=== PATIENT | female | born 1955 | race Caucasian/White ===

== ENCOUNTER 2020-12-09 14:15 | Outpatient (CLI) | payer BC, SELFPAY | END 2020-12-09 14:16 | disposition home or self-care (01) | LOC: ANHCOVIDVC 14:15 | PROVIDERS: PCP Family Medicine Adolescent Medicine | DX: Z23 Encounter for immunization (principal) | CPT/HCPCS: 0001A; 91300 ==

== ENCOUNTER 2020-12-30 14:14 | Outpatient (CLI) | payer BC, SELFPAY | END 2020-12-30 14:15 | disposition home or self-care (01) | LOC: ANHCOVIDVC 14:14 | PROVIDERS: PCP Family Medicine Adolescent Medicine | DX: Z23 Encounter for immunization (principal) | CPT/HCPCS: 0002A; 91300 ==

== ENCOUNTER → 2021-04-14 06:57 | Outpatient (CLI) | payer BC, SELFPAY ==
[2021-04-14 19:11] LABS: SARS-CoV-2 RNA PCR Negative
== END ==
PROVIDERS: PCP Family Medicine Adolescent Medicine; Visit Provider Family Medicine Adolescent Medicine
DX: R05 Cough (principal); R09.81 Nasal congestion; J02.9 Acute pharyngitis, unspecified; Z20.822 Contact with and (suspected) exposure to COVID-19
CPT/HCPCS: C9803; U0003; U0005

== ENCOUNTER → 2021-09-18 10:21 | Outpatient (CLI) | payer MEDICARE, SELFPAY ==
--- NOTE | ~2021-09-18 | DEXA_ITS ---
Bone Density Report Name: SIERRA COX Age: 66 Sex: Female Ethnicity: White Date of : 1955 Indication: postmenopausal; screening for osteoporosis; height loss; cancer; hysterectomy; Referring Provider: Nataly Cannon Study: Bone densitometry was performed. Exam Date: September 18, 2021 Accession number: [id number] Bone Density: Region BMD T-score Z-score Classification AP Spine (L1-L4) 0.972 -0.7 1.1 Normal Femoral Neck (Left) 0.604 -2.2 -0.7 Osteopenia Total Hip (Left) 0.864 -0.6 0.6 Normal Femoral Neck (Right) 0.601 -2.2 -0.7 Osteopenia Total Hip (Right) 0.843 -0.8 0.4 Normal Total Hip Mean 0.854 -0.7 0.5 Normal World Health Organization criteria for BMD impression classify patients as: Normal (T-score at or above -1.0), Osteopenia (T-score between -1.0 and -2.5), or Osteoporosis (T-score at or below -2.5). 10-year Fracture Risk(1): Major Osteoporotic Fracture 11% Hip Fracture 2.7% Reported Risk Factors: [place] (), Neck BMD=0.601, BMI=37.1, smoking (1) FRAX(R) Version 3.08. Fracture probability calculated for an untreated patient. Fracture probability may be lower if the patient has received treatment. Previous Exams: Region Exam Age BMD T-score BMD Change BMD Change Date g/cm2 vs Baseline vs Previous AP Spine(L1-L4) 09/18/2021 66 0.972 -0.7 -0.011 0.025* 09/15/2019 64 0.948 -0.9 -0.035* -0.035* 08/14/2017 62 0.983 -0.6 Total Hip(Left) 09/18/2021 66 0.864 -0.6 -0.015 0.001 09/15/2019 64 0.863 -0.6 -0.016 -0.016 08/14/2017 62 0.879 -0.5 Total Hip(Right) 09/18/2021 66 0.843 -0.8 -0.028* 0.004 09/15/2019 64 0.839 -0.8 -0.032* -0.032* 08/14/2017 62 0.871 -0.6 *Denotes significance at 95% confidence level, LSC for AP Spine = 0.022 g/cm2, LSC for Total Hip = 0.027 g/cm2 Clinical Information Provided by Patient: Smokes Has used the following medications: Vitamin D, Calcium Has the following medical conditions: Cancer, Hysterectomy Patient maximum height was 62.0 Menopause Age: 41 No regular weight bearing exercise Drinks caffeinated beverages Onset of menses at age 13 Number of children 2 Impression: The patient has low bone mass, based on the Left Femoral Neck T-score. The patient has an estimated ten-year risk of hip fracture of 2.7% and an estimated ten-year risk of
== END ==
PROVIDERS: PCP Family Medicine Adolescent Medicine; Visit Provider Student in an Organized Health Care Education/Training Program
DX: Z78.0 Asymptomatic menopausal state (principal); M85.851 Other specified disorders of bone density and structure, right thigh; M85.852 Other specified disorders of bone density and structure, left thigh
CPT/HCPCS: 77080

== ENCOUNTER → 2022-03-28 11:42 | Outpatient (CLI) | payer MEDICARE, SELFPAY ==
--- NOTE | ~2022-03-28 | CT_ITS ---
EXAMINATION: CT abdomen pelvis wo/w con DATE: 03/28/2022 12:25 INDICATION: Hematuria, history of bladder and breast cancer and melanoma TECHNIQUE: Computed tomography (CT) of the abdomen and pelvis was performed without intravenous contr ast. CT of the abdomen and pelvis was then performed with a total of 130 mL Omnipaque 300 intravenous contrast using a double-bolus technique for simultaneous opacification of the renal parenchyma and r enal collecting system. The dose-length product (DLP) was 1812.87 mGy-cm. Automated exposure control and iterative reconstruction technique were employed. COMPARISON: 10/31/2012 FINDINGS: Minimal dependent atelectasis is present in the lung bases. The heart size is normal. There is a small sliding hiatal hernia. The gallbladder is surgically absent. There is mild enlargement of the common bile duct and central intrahepatic ducts which is likely due to post cholecystectomy stat e. There is a 2 cm adenoma of the right adrenal gland. The liver, spleen, pancreas, and left adrenal gland are normal. There is a 4 mm nonobstructing stone of the left kidney. There are multiple small c ysts of the kidneys which measure up to 12 mm on the right. No stones are identified in the kidneys, ureters, or bladder. There is no hydronephrosis or hydroureter. There are is a 6 mm soft tissue atten uation filling defect in the right posterolateral bladder. No pathologically enlarged abdominal or pe lvic lymph nodes are identified. There is no free intraperitoneal gas or evidence of bowel obstructio n. There is mild lumbar spondylosis. IMPRESSION: 1. No acute abnormality of the abdomen or pelvis. 2. Soft tissue filling defect in the right posterolateral bladder wall concerning for urothelial carc inoma. Direct visualization is recommended. Reviewed, dictated and finalized at location A. IMPRESSION: 1. No acute abnormality of the abdomen or pelvis. 2. Soft tissue filling defect in the right posterolateral bladder wall concerni ng for urothelial carcinoma. Direct visualization is recommended.
[2022-03-28 12:03] LABS: Estimated Glomerular Filt Rate > 60
== END ==
PROVIDERS: PCP Family Medicine Adolescent Medicine; Visit Provider Physician Assistant
DX: R31.9 Hematuria, unspecified (principal); D35.01 Benign neoplasm of right adrenal gland; Z85.038 Personal history of other malignant neoplasm of large intestine; K44.9 Diaphragmatic hernia without obstruction or gangrene; M47.816 Spondylosis without myelopathy or radiculopathy, lumbar region; M79.89 Other specified soft tissue disorders
CPT/HCPCS: 74178; Q9967

== ENCOUNTER 2022-04-26 10:35 | Outpatient (CLI) | payer MEDICARE, SELFPAY ==
--- NOTE | 2022-04-26 10:53 | ECG_ITS ---
Measurements Intervals [place] Rate: 62 P: 64 W[place]: 277 QRS: 50 QRSD: 98 T: -63 QT: 399 QTc: 407 Interpretive Statements ATRIAL SENSE- ELECTRONIC VENTRICULAR PACEMAKER BASELINE ARTIFACT- I, II, III, AVR, AVL, AVF NO FURTHER INTERPRETATION IS POSSIBLE ATYPICAL ECG Electronically Signed On 04-26-2022 11:24:04 CDT by Eddie Munson D.O.
[2022-04-26 11:20] LABS: Hematocrit 51.2 % (37.0-47.0); Hemoglobin 16.3 g/dL (12.0-15.0); Mean Corpuscular HGB Conc 31.8 g/dl (32-36); Mean Corpuscular Hemoglobin 29.1 pg (26-34); Mean Corpuscular Volume 91.3 fl (80-100); Mean Platelet Volume 12.3 fl (7.4-10.4); Platelet Count Result 122 k/mm3 (150-375); Red Blood Count 5.61 M/mm3 (4.2-5.4); Red Cell Distribution Width 13.9 % (11.5-14.5)
[2022-04-26 12:21] LABS: Anion Gap 10 mmol/L (8-16); Blood Urea Nitrogen 26 mg/dL (7-17); Calcium 9.3 mg/dL (8.4-10.2); Carbon Dioxide 29 mmol/L (22-30); Chloride 103 mmol/L (98-107); Estimated Glomerular Filt Rate > 60; Glucose 80 mg/dL (65-110); Potassium 4.4 mmol/L (3.4-5.0); Sodium 142 mmol/L (137-145)
== END 2022-04-26 10:36 | disposition home or self-care (01) ==
LOC: ANHSURGERY 10:40
PROVIDERS: PCP Family Medicine Adolescent Medicine; Visit Provider Urology
DX: Z01.818 Encounter for other preprocedural examination (principal); I49.5 Sick sinus syndrome; C67.9 Malignant neoplasm of bladder, unspecified; R94.31 Abnormal electrocardiogram [ECG] [EKG]
CPT/HCPCS: 36415; 80048; 85027; 85610; 85730; 87077; 87086; 87186; 93005

== ENCOUNTER 2022-05-10 09:26 | Outpatient (CLI) | payer MEDICARE, SELFPAY | END 2022-05-10 09:27 | disposition home or self-care (01) | LOC: ANHSURGERY 09:29 | PROVIDERS: PCP Family Medicine Adolescent Medicine; Visit Provider Urology | DX: Z01.818 Encounter for other preprocedural examination (principal); C67.9 Malignant neoplasm of bladder, unspecified | CPT/HCPCS: 87086; 87088 ==

== ENCOUNTER 2022-05-15 00:27 | Day surgery (SDC) | payer MEDICARE, SELFPAY ==
[2022-04-24 08:46] VITALS: BMI 34.4
--- NOTE | 2022-04-24 09:43 | PC.NURSE ---
Report to the Outpatient Waiting Room, entrance under the green pavilion located off [facility], at time 0630__ on date _05/01/22. OR Time: _0830 . WE WILL CALL YOU ON Saturday04/30/22 IF YOUR SURGERY TIME IS CHANGED - You and your visitor will be asked a series of questions to screen for COVID 19 for your protection. - Only one visitor is allowed at this time. - The patient visitor is requested to leave or wait in car when not with patient. - A mask is required within the hospital. Patients may have clear liquids (water, carbonated beverages, clear teas, apple juice) until 3 hours prior to surgery with a maximum of 20 ounces. - No food from midnight until time of surgery Take the following medications with a SIP of water the morning of surgery: __WELLBUTRIN Medications to discontinue per physician ___VITAMINS/SUPPLEMENTS Date to take last dose__04/28/22 Please no make-up, nail sing[place], hairspray, perfume, deodorant, or body powder the day of surgery. No jewelry (including any body piercings) or valuables the day of surgery, leave them at home. Please take a shower or bath the night before, or the morning of, surgery with an antibacterial soap. Wear comfortable, loose fitting clothing. - Jewelry must be removed prior to entering the operating room. Rings and piercings that are not removed may be cut off. - The hospital will not accept responsibility for valuables. - Please leave all valuables, including medications, at home the day of surgery. If you are going home after surgery, a licensed petroleum transport driver must drive you home. - NO public transportation without another adult. - We recommend that an adult stay with you for 24 hours following discharge. - We also recommend that you do not drive, make important decision, drink alcoholic beverages, or take any drugs that were not prescribed by your health care provider for at least 24 hours after your discharge time. Follow any additional instructions given to you from your surgeon. If you or anyone in your household have experienced Covid symptoms in the past week, please notify your surgeon or the nurse liaison at the phone number below for possible testing. Telephone instructions given to __LISA and asked if any additional questions and then verbalized understanding. Patient advised to call surgeon office or pre surgery nurse liaison [phone] if any additional questions.
--- NOTE | 2022-04-30 13:31 | WPDANESEPPF ---
Anes - Initial Pre Proc Eval Procedure: Operation Date: 05/01/22 08:30 Proposed Procedures p Trans Urethral Resection Bladder Tumor - Radames Salcido MD Date/Time: 04/30/22 13:31 Surgeon: Radames Salcido MD Pre Op Diagnosis: bladder cancer Patient Data Age: 66 Gender: F Height: 1.52 m Weight: 80 kg Allergies Allergy/AdvReac Type Severity Reaction Status Date / Time adhesive tape Allergy Intermediate Rash Verified 04/24/22 08:58 amoxicillin Allergy Intermediate Rash Verified 04/24/22 08:58 isoniazid Allergy Intermediate Rash Verified 04/24/22 08:58 Sulfa (Sulfonamide Allergy Intermediate Rash Verified 04/24/22 08:58 Antibiotics) sulfanilamide Allergy Intermediate Rash Verified 04/24/22 08:58 trimethoprim Allergy Intermediate Rash Verified 04/24/22 08:58 varenicline Allergy Intermediate Rash Verified 04/24/22 08:58 Home Medications Medication Instructions Recorded Confirmed Type cholecalciferol (vitamin D3) 25 1,000 unit PO DAILY 09/01/19 04/24/22 History mcg (1,000 unit) capsule omega-3 fatty acids 1,000 mg 1,000 mg PO DAILY 09/01/19 04/24/22 History capsule (Fish Oil Concentrate) calcium carbonate 600 mg calcium 600 mg PO BID 09/25/19 04/24/22 History (1,500 mg) tablet (Calcium) estradiol 10 mcg vaginal tablet 10 mcg vaginal 2XW #24 tabs 12/15/20 04/24/22 Rx (Yuvafem) bupropion HCl 150 mg tablet,12 hr 150 mg PO BID #180 tabs 12/04/21 04/24/22 Rx sustained-release pantoprazole 40 mg tablet,delayed 40 mg PO QAM #90 tabs 12/04/21 04/24/22 Rx release rosuvastatin 20 mg tablet 20 mg PO DAILY #90 tabs 12/16/21 04/24/22 Rx venlafaxine 37.5 mg 37.5 mg PO HS 04/24/22 04/24/22 History capsule,extended release 24 hr Results Review: All pre-operative results and documents have been reviewed as part of the pre-operative evaluation. [facility] Past Medical History Medical History (Updated 04/30/22 @ 13:31 by Eduin Howard DO) Aortic atherosclerosis Basal cell carcinoma Bladder cancer Breast cancer Lipoma Malignant melanoma Pacemaker Pacemaker Pure hypercholesterolemia, unspecified Sick sinus syndrome Surgical History Surgical History H/O dilation and curettage H/O hernia repair H/O total hysterectomy with removal of both tubes and ovaries History of mastectomy History of tonsillectomy History of tubal ligation Hx of cholecystectomy Family History Family History Mother Hypertension Family history of elevated blood lipids, Onset Age: 82 Family history of lung cancer Grandparent Cerebrovascular accident, Onset Age: 89 Family history of malignant neoplasm of breast in first degree relative, Onset Age: 89 Father Family history of lung cancer Other Family history of allergic disorder Family history of tuberculosis Social History Social History Smoking packs per day: 1 Smoking cigarettes per day: 20.0 Years smoked: 50 Smoking pack-years: 50.00 Smoking status: Current every day smoker Tobacco type: cigarettes Second hand tobacco smoke exposure: No Alcohol intake: never Alcohol use details: socially Substance use: never Substance use type: does not use Gender identity (if verbalized by the patient): Female Sexual Orientation (if Verbalized by the Patient): Straight or Heterosexual Spiritual care concerns: No Agree to blood products: Yes Anes - Eval Final PreProcedure Day of Procedure 04/30/22 13:31 Patient weight: obese Heart: regular rate and rhythm Lungs: clear to auscultation Airway: Mallampati scale class II Neurological: alert and oriented Last oral intake: >/= 8 hours ASA classification: III Emergent: no Anesthetic plan: proceed Anesthesia type and monitoring: general LMA and standard monitoring Results Review:
--- NOTE | 2022-05-09 08:38 | PC.NURSE ---
Report to the Outpatient Waiting Room, entrance under the green pavilion located off [facility], at time ___0600____ on date ___05/15/22____. OR Time: __729 . - You and your visitor will be asked a series of questions to screen for COVID 19 for your protection. - Only one visitor is allowed at this time. - The patient visitor is requested to leave or wait in car when not with patient. - A mask is required within the hospital. Patients may have clear liquids (water, carbonated beverages, clear teas, apple juice) until 3 hours prior to surgery with a maximum of 20 ounces. - No food from midnight until time of surgery - Infants may have breast milk until 4 hours before surgery, infant formula 6 hours prior to surgery. - Children will be allowed to drink immediately following surgery. If applicable, please bring a bottle or sippy cup to assist with drinking. Juice, water, soda, and popsicles are readily available. For infants on formula, please bring formula the day of surgery. Pacifiers are allowed. Take the following medications with a SIP of water the morning of surgery: ____BUPROPION Medications to discontinue per physician _ALL VITAMINS AND SUPPLEMENTS 3 DAYS PRE OP Date to take last dose__05/11/22 Please no make-up, nail citizen of [place], hairspray, perfume, deodorant, or body powder the day of surgery. No jewelry (including any body piercings) or valuables the day of surgery, leave them at home. Please take a shower or bath the night before, or the morning of, surgery with an antibacterial soap. Wear comfortable, loose fitting clothing. Children are encouraged to wear pajamas. - Jewelry must be removed prior to entering the operating room. Rings and piercings that are not removed may be cut off. - The hospital will not accept responsibility for valuables. - Please leave all valuables, including medications, at home the day of surgery. If you are going home after surgery, a licensed hazardous materials driver must drive you home. - NO public transportation without another adult. - We recommend that an adult stay with you for 24 hours following discharge. - We also recommend that you do not drive, make important decision, drink alcoholic beverages, or take any drugs that were not prescribed by your health care provider for at least 24 hours after your discharge time. For Pediatric surgeries, we recommend two adults accompany the child home (only one inside the building at this time). Follow any additional instructions given to you from your surgeon. If you or anyone in your household have experienced Covid symptoms in the past week, please notify your surgeon or the nurse liaison at the phone number below for possible testing. Telephone instructions given to ___PATIENT and asked if any additional questions and then verbalized understanding. Patient advised to call surgeon office or pre surgery nurse liaison [phone] if any additional questions.
--- NOTE | 2022-05-09 08:42 | PC.NURSE ---
PT STATES HAD POSITIVE URINE CULTURE. TOOK CIPRO X 5 DAYS. LAST DOSE 05/05/22. NO OTHER CHANGE IN HEALTH HX SINCE LAST INTERVIEW
--- NOTE | 2022-05-14 13:50 | WPDANESEPPF ---
Anes - Initial Pre Proc Eval Procedure: Operation Date: 05/15/22 07:30 Proposed Procedures p Trans Urethral Resection Bladder Tumor - Radames Salcido MD Date/Time: 05/14/22 13:50 Surgeon: Radames Salcido MD Pre Op Diagnosis: bladder cancer Patient Data Age: 66 Gender: F Height: 1.52 m Weight: 80 kg Allergies Allergy/AdvReac Type Severity Reaction Status Date / Time adhesive tape Allergy Intermediate Rash Verified 05/15/22 06:08 amoxicillin Allergy Intermediate Rash Verified 05/15/22 06:08 isoniazid Allergy Intermediate Rash Verified 05/15/22 06:08 Sulfa (Sulfonamide Allergy Intermediate Rash Verified 05/15/22 06:08 Antibiotics) sulfanilamide Allergy Intermediate Rash Verified 05/15/22 06:08 trimethoprim Allergy Intermediate Rash Verified 05/15/22 06:08 varenicline Allergy Intermediate Rash Verified 05/15/22 06:08 Home Medications Medication Instructions Recorded Confirmed Type cholecalciferol (vitamin D3) 25 1,000 unit PO DAILY 09/01/19 05/15/22 History mcg (1,000 unit) capsule omega-3 fatty acids 1,000 mg 1,000 mg PO DAILY 09/01/19 05/15/22 History capsule (Fish Oil Concentrate) calcium carbonate 600 mg calcium 600 mg PO BID 09/25/19 05/15/22 History (1,500 mg) tablet (Calcium) estradiol 10 mcg vaginal tablet 10 mcg vaginal 2XW #24 tabs 12/15/20 05/15/22 Rx (Yuvafem) bupropion HCl 150 mg tablet,12 hr 150 mg PO BID #180 tabs 12/04/21 05/15/22 Rx sustained-release pantoprazole 40 mg tablet,delayed 40 mg PO QAM #90 tabs 12/04/21 05/15/22 Rx release rosuvastatin 20 mg tablet 20 mg PO DAILY #90 tabs 12/16/21 05/15/22 Rx venlafaxine 37.5 mg 37.5 mg PO HS 04/24/22 05/15/22 History capsule,extended release 24 hr Patient hx anesthesia problems: none Family hx anesthesia problems: none Results Review: All pre-operative results and documents have been reviewed as part of the pre-operative evaluation. [facility] Past Medical History Medical History (Updated 05/14/22 @ 13:51 by Eduin Howard, ) Aortic atherosclerosis Basal cell carcinoma Bladder cancer Breast cancer History of tuberculosis Lipoma Malignant melanoma Pacemaker Pacemaker Pure hypercholesterolemia, unspecified Sick sinus syndrome Surgical History Surgical History H/O dilation and curettage H/O hernia repair H/O total hysterectomy with removal of both tubes and ovaries History of mastectomy History of tonsillectomy History of tubal ligation Hx of cholecystectomy Family History Family History Mother Hypertension Family history of elevated blood lipids, Onset Age: 82 Family history of lung cancer Grandparent Cerebrovascular accident, Onset Age: 89 Family history of malignant neoplasm of breast in first degree relative, Onset Age: 89 Father Family history of lung cancer Other Family history of allergic disorder Family history of tuberculosis Social History Social History Smoking packs per day: 1 Smoking cigarettes per day: 20.0 Years smoked: 50 Smoking pack-years: 50.00 Smoking status: Current every day smoker Tobacco type: cigarettes Second hand tobacco smoke exposure: No Alcohol intake: never Alcohol use details: socially Substance use: never Substance use type: does not use Living arrangements: with family Gender identity (if verbalized by the patient): Female Sexual Orientation (if Verbalized by the Patient): Straight or Heterosexual Spiritual care concerns: No Agree to blood products: Yes Anes - Eval Final PreProcedure Day of Procedure 05/14/22 13:50 Patient weight: obese Heart: regular rate and rhythm Lungs: clear to auscultation Airway: Mallampati scale class II Neurological: alert and oriented Last oral intake: >/= 8 hours ASA classifica
[2022-05-15] VITALS (8 sets, daily range): BP systolic 102–130; BP diastolic 64–79; PULSE 62–80; RESP 12–18; TEMP 36.1; O2SAT 92–100
[2022-05-15] MEDS: LACTATED RINGERS 1,000 ML 30 ML IV CONT (06:24)
--- NOTE | 2022-05-15 07:16 | WPDHPUPDATE1 ---
History and Physical Update Update Date/Time: 05/15/22 07:16 History and Physical has been reviewed, including an updated exam of the patient. There are NO changes in the patient's condition. Risks, benefits, and alternatives have been discussed and questions answered. Patient agrees to proceed with procedure. Proceed with turbt
[2022-05-15] MEDS: ceFAZolin 2 GM/D5W 50 ML 2 GM/50 ML BAG IVPB (07:36)
[2022-05-15] MEDS: LIDOCAINE HCL 2% GEL UROJET 10 ML PKG MUCOUS MEM (07:42)
--- NOTE | 2022-05-15 07:45 | W.PM.PROC2 ---
Procedure Note - Detailed Date of Procedure 05/15/22 Pre-op Diagnosis bladder cancer Post-op Diagnosis Same Procedure Performed Transurethral resection of small bladder tumor 1 cm right lateral wall Surgeon Radames Salcido MD Anesthesia General Description of Procedure Patient is taken to the operative suite correctly identified. Once anesthesia was obtained she was placed in dorsal lithotomy position and prepped and draped usual sterile fashion. Twenty-four Mongolian resectoscope sheath was inserted the bladder. She has a tumor measuring approximate 1 cm along the right lateral wall near the floor. This was resected and sent for analysis. The base was fulgurated. There was good hemostasis at termination procedure. Reinspection of the bladder revealed no other lesions. Bladder was drained. 2% viscous lidocaine was inserted urethra patient is taken recovery stable condition. She is to call for the path results in 1 weeks time. Estimated Blood Loss 0 Drains No Packing No Pathology Yes Complications No immediate complications Condition Stable Disposition PACU
== END 2022-05-15 09:35 | disposition home or self-care (01) ==
PROVIDERS: PCP Family Medicine Adolescent Medicine; Visit Provider Urology
PROC: 0TBB8ZZ Excision of Bladder, Via Natural or Artificial Opening Endoscopic (ICD-10-PCS; CPT 52234; principal; 2022-05-15 07:30)
DX: C67.2 Malignant neoplasm of lateral wall of bladder (principal); I70.0 Atherosclerosis of aorta; E78.00 Pure hypercholesterolemia, unspecified; Z85.828 Personal history of other malignant neoplasm of skin; I49.5 Sick sinus syndrome; F17.210 Nicotine dependence, cigarettes, uncomplicated; E66.9 Obesity, unspecified; Z68.34 Body mass index [BMI] 34.0-34.9, adult; Z90.49 Acquired absence of other specified parts of digestive tract; Z85.3 Personal history of malignant neoplasm of breast; R31.0 Gross hematuria
CPT/HCPCS: 52234; 88305; A9270; J0690; J1100; J2405; J2704; J3010; J7120

== ENCOUNTER → 2023-03-18 11:04 | Outpatient (CLI) | payer MEDICARE, SELFPAY ==
--- NOTE | ~2023-03-18 | XR_ITS ---
EXAMINATION: XR chest 2V 03/18/2023 11:17 INDICATION: Shortness of breath. History of breast cancer and melanoma. PROCEDURE: PA and lateral views of the chest COMPARISON: Comparison to multiple prior studies sequentially, with oldest reviewed study dated 06/30. FINDINGS: The lungs are clear. The cardiomediastinal silhouette is within normal limits. There are no pleural effusions. There is no pneumothorax suspected. The lungs are hyperinflated which is cons istent with, but not diagnostic of chronic obstructive pulmonary disease. Pacemaker leads in expected position. IMPRESSION: 1: NO ACUTE CARDIOPULMONARY DISEASE. Reviewed, dictated and finalized at location []
== END ==
PROVIDERS: PCP Family Medicine Adolescent Medicine; Visit Provider Nurse Practitioner Family
DX: R06.02 Shortness of breath (principal); Z85.3 Personal history of malignant neoplasm of breast; Z85.820 Personal history of malignant melanoma of skin; Z72.0 Tobacco use
CPT/HCPCS: 71046

== ENCOUNTER 2023-04-15 12:56 | Outpatient (CLI) | payer MEDICARE, SELFPAY ==
--- NOTE | 2023-04-16 07:23 | WPDPFTINT ---
PFT Procedure Performed PFT Procedure Performed Plethysmography (Lung Vol) Diffusing Cap (DLCO) Flow Vol Loop Spirometry w/o Bronchodil PFT Interpretation This is a pulmonary function test with spirometry, plethysmography and diffusing capacity. The test was performed and results interpreted in accordance with the 2019 and 2005 ATS/ERS Task Force guidelines respectively using the Global Lung Function Initiative-2012 reference equations. Patient demonstrated good effort and cooperation. Reproducibility criteria were met. The quality of the spirometry maneuver was Grade B. Findings: Spirometry: The contour the inspiratory and expiratory flow tracing are normal. The FVC is 2.67 L, 104% predicted. The FEV1 is 1.87 L, 93% predicted. The FEV1: FVC ratio 70%. Plethysmography: The total lung capacity is 4.95 L, 112% predicted. The functional residual capacity is 2.78 L, 111% predicted. The residual volume is 2.28 L, 120% predicted. Diffusing capacity: The diffusing capacity unadjusted for hemoglobin and carboxyhemoglobin is 15.5, 80% predicted. The diffusing capacity adjusted for alveolar volume is 4.23, 93% predicted. In comparison to prior pulmonary function testing on 08/11/2018 in which only spirometry was performed the FVC is unchanged from 2.64 L to 2.67 L. The FEV1 is unchanged from 2.06 L to 1.87 L. Impression: The spirometry is normal without evidence of an obstructive abnormality. The lung volumes are normal. The diffusing capacity is normal. In comparison to previous pulmonary function testing on 08/11/2018 there has been no significant change in the FVC or FEV1. Clinical correlation is recommended.
== END 2023-04-15 12:57 | disposition home or self-care (01) ==
LOC: ANHPFT 12:58
PROVIDERS: PCP Family Medicine Adolescent Medicine; Visit Provider Nurse Practitioner Family
DX: R06.09 Other forms of dyspnea (principal)
CPT/HCPCS: 94375; 94726; 94729

== ENCOUNTER 2023-05-21 09:33 | Outpatient (CLI) | payer MEDICARE, SELFPAY ==
--- NOTE | 2023-05-21 | ECHO_ITS ---
Patient Info Name: Yamilka Daley Age: 67 years : 1955 Gender: Female Ht: 60 in Wt: 195 lbs BSA: 1.98 m2 HR: 68 bpm BP: 135 / 81 mmHg Technical Quality: Fair Exam Date: 05/21/2023 10:46 AM Exam Location: [facility] Patient Status: Outpatient Admit Date: 05/21/2023 Staff Ordering Physician: SU CURRY Weld Inspector: Marlee Díaz RDCS Attending Provider: SU CURRY Exam Type: CA echo doppler color flow Study Info Indications - PPM HX/O BREAST CA S/P RADIATION BILATERAL MASTECTOMY C/O SOB Complete two-dimensional, color flow and Doppler transthoracic echocardiogram is performed. Summary 1. Complete two-dimensional, color flow and Doppler transthoracic echocardiogram is performed. 2. Left ventricular chamber dimension is normal. 3. Left ventricular systolic function is normal, estimated at 60-65%. 4. The left ventricular diastolic function is grade I diastolic dysfunction. 5. E/e' 10 is mildly elevated. 6. Linear artifact in right ventricle suggestive of catheter(s), pacemaker lead(s), or ICD lead(s). 7. Right atrial chamber dimension is mildly enlarged. 8. Linear artifact in the right atrium suggestive of catheter(s), pacemaker lead(s), or ICD lead(s). 9. The mitral valve has mildly calcified annulus. 10. There is mild mitral valve regurgitation. 11. There is mild to moderate tricuspid valve regurgitation. 12. No pulmonary hypertension, estimated pulmonary arterial systolic pressure is 30 mmHg. Left Ventricle E/e' 10 is mildly elevated. Left ventricular chamber dimension is normal. Left ventricular systolic function is normal, estimated at 60-65%. The left ventricular diastolic function is grade I diastolic dysfunction. Right Ventricle Linear artifact in right ventricle suggestive of catheter(s), pacemaker lead(s), or ICD lead(s). Right ventricular systolic function is normal and with normal TAPSE 2.3 cm. Right ventricular chamber dimension is normal. Left Atria Left atrial chamber dimension is normal. Right Atria Linear artifact in the right atrium suggestive of catheter(s), pacemaker lead(s), or ICD lead(s). Right atrial chamber dimension is mildly enlarged. Aortic Valve The aortic valve is trileaflet. There is no aortic valve stenosis. There is no aortic valve regurgitation. Pulmonic Valve There is no pulmonic regurgitation. Mitral Valve The mitral valve has mildly calcified annulus. There is no mitral valve stenosis. There is mild mitral valve regurgitation. Tricuspid Valve There is mild to moderate tricuspid valve regurgitation. No pulmonary hypertension, estimated pulmonary arterial systolic pressure is 30 mmHg. Pericardium/Pleural There is no pericardial effusion. Inferior Vena Cava Normal inferior vena cava with >50% collapse upon inspiration consistent with normal right atrial pressure, 5 mmHg. Aorta The aortic root size at the sinus of Valsalva is normal. Left Ventricular Outflow Tract Name Value Normal LVOT 2D LVOT Diameter 2.0 cm LVOT Doppler LVOT Peak Gradient 7 mmHg LVOT Mean Gradient 4 mmHg LVOT VTI 29 cm LVOT VTI/AV VTI Ratio
== END 2023-05-21 09:34 | disposition home or self-care (01) ==
DX: I44.1 Atrioventricular block, second degree (principal); Z95.0 Presence of cardiac pacemaker; R06.09 Other forms of dyspnea; I34.0 Nonrheumatic mitral (valve) insufficiency; I35.1 Nonrheumatic aortic (valve) insufficiency
CPT/HCPCS: 93306

== ENCOUNTER 2023-07-06 20:05 | Emergency (ER) | payer MEDICARE, SELFPAY ==
[2023-07-06] VITALS (7 sets, daily range): BP systolic 126–156; BP diastolic 70–83; PULSE 59–67; RESP 12–19; TEMP 36.8; O2SAT 95–97
--- NOTE | ~2023-07-06 | CT_ITS ---
EXAMINATION: CT brain wo con DATE: 07/06/2023 21:13 INDICATION: HTN, headache, dizziness . TECHNIQUE: Computed tomography (CT) of the head was performed without intravenous contrast. The mA wa s adjusted according to patient size. Iterative reconstruction technique was employed. The dose-lengt h product was 605.33 mGy-cm. COMPARISON: None. FINDINGS: No acute intracranial hemorrhage or extra-axial fluid collection. No hydrocephalus, mass, or herniation. No acute ischemic infarct. Unremarkable dural venous sinus attenuation. No acute osseous abnormality. The aerated spaces are clear. Mild atrophy and chronic white matter change. Atherosclerotic intracranial calcification. Bilateral l ens replacements. IMPRESSION: No acute intracranial process. Reviewed, dictated and finalized at location K.
--- NOTE | ~2023-07-06 | XR_ITS ---
EXAMINATION: XR chest 1V portable Exam Date/Time: 07/06/2023 21:00 CDT HISTORY: HTN HEADACHE WITH RIGHT NECK AND SHOULDER PAIN Comparison: 03/18/2023. RESULT: Lines, tubes, and devices: Right chest pacer, with intact leads. Lungs and pleura: Hazy segmental opacity in the right lung base silhouetting a portion of the right hemidiaphragm. Cardiomediastinal silhouette: Stable. Other: No acute osseous or upper abdominal finding. IMPRESSION: Right lower lobe consolidation may represent atelectasis or pneumonia. Reviewed, dictated and finalized at location K.
--- NOTE | 2023-07-06 20:27 | ECG_ITS ---
Measurements Intervals [place] Rate: 60 P: -71 MI: 83 QRS: -63 QRSD: 169 T: 100 QT: 457 QTc: 458 Interpretive Statements ATRIAL SINCE ELECTRONIC VENTRICULAR PACEMAKER ATYPICAL ECG COMPARED TO ECG 04/26/2022 11:12:41 NO SIGNIFICANT CHANGES Electronically Signed On 07-07-2023 8:50:34 CDT by Arnold Naqvi M.D.
--- NOTE | 2023-07-06 20:29 | ED.GENADULT ---
HPI - General Adult General Chief complaint: Headache Stated complaint: htn Time Seen by Provider: 07/06/23 20:11 History of Present Illness HPI narrative: 68-year-old female history of hypertension presented the ED for evaluation of headache, left arm pain, right arm tingling and hypertension. Patient states last year her blood pressure is used to run in the 120 range. Over the last year her pressures have been elevated. Patient has been following up with her cna ltc at [facility] and has been closely monitoring her blood pressure. Related Data Home Medications Medication Instructions Recorded Confirmed cholecalciferol (vitamin D3) 25 1,000 unit PO DAILY 09/01/19 11/26/22 mcg (1,000 unit) capsule omega-3 fatty acids 1,000 mg 1,000 mg PO DAILY 09/01/19 11/26/22 capsule (Fish Oil Concentrate) calcium carbonate 600 mg calcium 600 mg PO BID 09/25/19 11/26/22 (1,500 mg) tablet (Calcium) psyllium husk 0.52 gram capsule 6 g PO DAILY 04/18/23 (Fiber (psyllium husk)) rosuvastatin 40 mg tablet 20 mg PO DAILY 04/18/23 Allergies Allergy/AdvReac Type Severity Reaction Status Date / Time adhesive tape Allergy Intermediate Rash Verified 07/06/23 20:19 amoxicillin Allergy Intermediate Rash Verified 07/06/23 20:19 isoniazid Allergy Intermediate Rash Verified 07/06/23 20:19 Sulfa (Sulfonamide Allergy Intermediate Rash Verified 07/06/23 20:19 Antibiotics) sulfanilamide Allergy Intermediate Rash Verified 07/06/23 20:19 trimethoprim Allergy Intermediate Rash Verified 07/06/23 20:19 varenicline Allergy Intermediate Rash Verified 07/06/23 20:19 Review of Systems Review of Systems: All systems reviewed & are unremarkable except as noted in HPI and below PMFSH Past Medical History Medical History (Updated 07/07/23 @ 00:22 by Kwan Michelle MD) Aortic atherosclerosis Basal cell carcinoma Bladder cancer Breast cancer History of breast cancer History of tuberculosis Lipoma Malignant melanoma Pacemaker Pacemaker Pure hypercholesterolemia, unspecified Sick sinus syndrome Surgical History Surgical History (Updated 04/18/23 @ 11:08 by Nissa Heaton MA) H/O dilation and curettage H/O hernia repair H/O total hysterectomy with removal of both tubes and ovaries History of bilateral cataract extraction History of colonoscopy with polypectomy History of mastectomy History of tonsillectomy History of tubal ligation Hx of cholecystectomy Family History Family History Mother Hypertension Family history of elevated blood lipids, Onset Age: 82 Family history of lung cancer Grandparent Cerebrovascular accident, Onset Age: 89 Family history of malignant neoplasm of breast in first degree relative, Onset Age: 89 Father Family history of lung cancer Other Family history of allergic disorder Family history of tuberculosis Social History Social History (Updated 04/18/23 @ 11:09 by Nissa Heaton MA) Smoking packs per day: 1 Smoking cigarettes per day: 20.0 Years smoked: 50 Smoking pack-years: 50.00 Smoking status: Current every day smoker Tobacco type: cigarettes Second hand tobacco smoke exposure: No Alcohol intake: never Alcohol use details: socially Substance use: never Substance use type: does not use Lack of Transportation: No Lack of Food: Never True Current Housing: I Have Housing Concerned About Future Housing: No Difficulty Paying Gas/Electric Bills: No Difficulty Paying for Meds: No Currently Unemployed: No Education: Associate Degree Difficulty w/ Childcare or Family Care: No Living arrangements: with family Occupation/Education: retired Gender identity (if verbalized by the patient): Female Sexual Orientation (if Verbalized by the Patient): Straight or Heterosexual Spiritual care concerns: No Agree to blood products: Yes Exam Narrative: APPEARANCE: We
[2023-07-06 20:43] LABS: Basophils Percent Auto 0.7 % (0.2-1.2); Eosinophils Absolute Auto 0.1 K/mm3 (0-0.3); Eosinophils Percent Auto 1.5 % (0-4.4); Hematocrit 45.5 % (37.0-47.0); Hemoglobin 14.8 g/dL (12.0-15.0); Immature Granulocyte Absolute 0.02 K/mm3 (0.00-0.031); Immature Granulocyte Percent A 0.4 % (0-0.5); Lymphocytes Absolute Auto 1.67 K/mm3 (0.9-3.2); Mean Corpuscular HGB Conc 32.5 g/dl (32-36); Mean Corpuscular Hemoglobin 29.5 pg (26-34); Mean Corpuscular Volume 90.6 fl (80-100); Mean Platelet Volume 12.5 fl (7.4-10.4); Monocytes Absolute Auto 0.4 K/mm3 (0.1-0.6); Neutrophils Absolute Auto 3.1 K/mm3 (1.3-6.7); Neutrophils Percent Auto 58.4 % (45.5-73.1); Platelet Count Result 108 k/mm3 (150-375); Red Blood Count 5.02 M/mm3 (4.2-5.4); Red Cell Distribution Width 13.9 % (11.5-14.5); White Blood Count 5.4 K/mm3 (4.5-10.0)
[2023-07-06 20:53] LABS: Alanine Aminotransferase 22 U/L (6-35); Albumin Level 4.2 g/dL (3.5-5.1); Alkaline Phosphatase 77 U/L (38-126); Anion Gap 5 mmol/L (8-16); Aspartate Amino Transferase 26 U/L (14-36); Bilirubin,Total 0.7 mg/dL (0.2-1.3); Blood Urea Nitrogen 14 mg/dL (7-17); Calcium 9.1 mg/dL (8.4-10.2); Carbon Dioxide 29 mmol/L (22-30); Chloride 104 mmol/L (98-107); Estimated CRCL calculation 59 ml/min; Estimated Glomerular Filt Rate > 60; Glucose 110 mg/dL (65-110); Prothrombin Time 13.2 Seconds (11.1-14.7); Sodium 138 mmol/L (137-145)
[2023-07-06 20:54] LABS: Partial Thromboplastin Time 30.7 SECONDS (22.3-36.8)
[2023-07-06 21:04] LABS: NT Pro B Type Natriuretic Pept 181 pg/mL (19.9-100); Troponin I < 0.012 ng/mL (0.000-0.034)
[2023-07-06 21:17] LABS: Influenza A QL RT-PCR Negative (Negative); Influenza B QL RT-PCR Negative (Negative); RSV RNA, RT-PCR Negative (Negative); SARS-CoV-2 RNA PCR Negative (Negative)
[2023-07-06 22:38] LABS: Appearance Urine Clear (Clear); Bilirubin Urine Negative (Negative); Blood Urine Negative (Negative); Color Urine Yellow (Yellow); Glucose Urine UA Negative (Negative); Ketones Urine Negative (Negative); Leukocyte Esterase Ur Negative LEU/UL (Negative); Nitrate Urine Negative (Negative); Protein Urine Negative (Negative)
[2023-07-06 22:44] LABS: Bacteria Urine None Seen /hpf; Non Pathogenic Casts 0-2; RBC Urine 0-2 /hpf (0-2); Squamous Epithelial Cell Urine None seen /hpf (Few); WBC Urine 0-5 /hpf
[2023-07-06 23:12] LABS: Add Urine Microscopic? NO
[2023-07-07 00:02] LABS: Troponin I < 0.012 ng/mL (0.000-0.034)
[2023-07-07 00:43] VITALS: BP 131/76; PULSE 64; RESP 19; O2SAT 94
== END 2023-07-07 00:44 | disposition home or self-care (01) ==
PROVIDERS: Emergency Provider Emergency Medicine; PCP Family Medicine Adolescent Medicine
DX: R51.9 Headache, unspecified (principal); I10 Essential (primary) hypertension; Z20.822 Contact with and (suspected) exposure to COVID-19; I70.0 Atherosclerosis of aorta; E78.00 Pure hypercholesterolemia, unspecified; I49.5 Sick sinus syndrome; F17.210 Nicotine dependence, cigarettes, uncomplicated; Z95.0 Presence of cardiac pacemaker; Z85.828 Personal history of other malignant neoplasm of skin; Z85.51 Personal history of malignant neoplasm of bladder; Z85.3 Personal history of malignant neoplasm of breast; Z85.820 Personal history of malignant melanoma of skin; Z86.11 Personal history of tuberculosis; Z90.710 Acquired absence of both cervix and uterus; Z90.49 Acquired absence of other specified parts of digestive tract; Z90.10 Acquired absence of unspecified breast and nipple; Z98.42 Cataract extraction status, left eye; Z98.41 Cataract extraction status, right eye; Z96.1 Presence of intraocular lens; R91.8 Other nonspecific abnormal finding of lung field
CPT/HCPCS: 36415; 70450; 71045; 80053; 81003; 83880; 84484; 85025; 85610; 85730; 87637; 93005; 99284

== ENCOUNTER → 2023-09-24 10:07 | Outpatient (CLI) | payer MEDICARE, SELFPAY ==
--- NOTE | ~2023-09-24 | DEXA_ITS ---
Bone Density Report Name: [facility] Age: 68 Sex: Female Ethnicity: White Date of : 1955 Indication: postmenopausal; screening for osteoporosis; height loss; hysterectomy; Referring Provider: JACQUES HANNAH Study: Bone densitometry was performed. Exam Date: September 24, 2023 Accession number: [id number] Bone Density: Region BMD T-score Z-score Classification AP Spine (L1-L4) 0.983 -0.6 1.3 Normal Femoral Neck (Left) 0.601 -2.2 -0.6 Osteopenia Total Hip (Left) 0.875 -0.5 0.8 Normal Femoral Neck (Right) 0.580 -2.4 -0.8 Osteopenia Total Hip (Right) 0.838 -0.9 0.5 Normal Total Hip Mean 0.857 -0.7 0.7 Normal World Health Organization criteria for BMD impression classify patients as: Normal (T-score at or above -1.0), Osteopenia (T-score between -1.0 and -2.5), or Osteoporosis (T-score at or below -2.5). 10-year Fracture Risk(1): Major Osteoporotic Fracture 12% Hip Fracture 3.7% Reported Risk Factors: [place] (), Neck BMD=0.580, BMI=38.6, smoking (1) FRAX(R) Version 3.08. Fracture probability calculated for an untreated patient. Fracture probability may be lower if the patient has received treatment. Previous Exams: Region Exam Age BMD T-score BMD Change BMD Change Date g/cm2 vs Baseline vs Previous AP Spine(L1-L4) 09/24/2023 68 0.983 -0.6 -0.001 0.010 09/18/2021 66 0.972 -0.7 -0.011 0.025* 09/15/2019 64 0.948 -0.9 -0.035* -0.035* 08/14/2017 62 0.983 -0.6 Total Hip(Left) 09/24/2023 68 0.875 -0.5 -0.004 0.011 09/18/2021 66 0.864 -0.6 -0.015 0.001 09/15/2019 64 0.863 -0.6 -0.016 -0.016 08/14/2017 62 0.879 -0.5 Total Hip(Right) 09/24/2023 68 0.838 -0.9 -0.033 -0.005 09/18/2021 66 0.843 -0.8 -0.028* 0.004 09/15/2019 64 0.839 -0.8 -0.032* -0.032* 08/14/2017 62 0.871 -0.6 *Denotes significance at 95% confidence level, LSC for AP Spine = 0.022 g/cm2, LSC for Total Hip = 0.027 g/cm2 Clinical Information Provided by Patient: Smokes Has used the following medications: Vitamin D, Calcium Has the following medical conditions: Hysterectomy, Hx of left breast ca in 2009 and 2013 with bilateral mastectomy with radiation and Anastrozole. Hx of bladder ca in 2009 and 2018. Patient maximum height was 62.0 Menopause Age: 41 Drinks caffeinated beverages Onset of menses at age 13
== END ==
PROVIDERS: PCP Family Medicine Adolescent Medicine; Visit Provider Registered Nurse
DX: M85.88 Other specified disorders of bone density and structure, other site (principal); Z78.0 Asymptomatic menopausal state
CPT/HCPCS: 77080

== ENCOUNTER → 2023-11-01 10:07 | Outpatient (CLI) | payer MEDICARE, SELFPAY ==
--- NOTE | ~2023-11-01 | US_ITS ---
Abdominal Sonogram: Real-time sonographic imaging of the abdomen was performed. Clinical History: Epigastric pain Findings: The liver appears normal with no evidence of mass lesion or bile duct dilatation. Main por juan vein demonstrates normal direction of flow. The spleen is normal in size without evidence of foca l lesion. The gallbladder is absent, compatible prior cholecystectomy. The common bile duct measures 11 mm. The visualized pancreas, aorta, and IVC are unremarkable. The right kidney measures 11.8 cm in length and the left kidney measures 10.0 cm. There is no hydronephrosis or renal calculus. Sugge stion of bilateral masses in the renal lesions, measuring 4.9 cm in diameter on the right, and 4.6 cm diameter on the left. Impression: Possible bilateral adrenal masses measuring 4.6 and 4.9 [address] in size. Prior CT dated 03/19/2022 demonstr ated a 2 cm right adrenal adenoma. Abdominal CT advised to reassess for adrenal masses. Reviewed, dictated and finalized at location . YSIS EVALUATOR Impression: Possible bilateral adrenal masses measuring 4.6 and 4.[address] size[address] Prior [address] da nikki 03/19/2022 demonstrated a 2 cm right adrenal adenoma. Abdominal CT advised t o reassess for adrenal masses.
== END ==
PROVIDERS: PCP Family Medicine Adolescent Medicine; Visit Provider Family Medicine Adolescent Medicine
DX: R10.13 Epigastric pain (principal); E27.9 Disorder of adrenal gland, unspecified
CPT/HCPCS: 76700

== ENCOUNTER 2023-11-12 10:20 | Outpatient (CLI) | payer MEDICARE, SELFPAY ==
--- NOTE | ~2023-11-12 | CT_ITS ---
Non-contrast CT scan of the Abdomen Clinical indication: Bilateral adrenal masses Technique: 2.5 mm axial scans were obtained through the abdomen without intravenous or oral contrast . Dose reduction technique was used on this scan by utilizing automated exposure control and iterativ e reconstruction technique. The dose-length product (DLP) was 524.72 mGy-cm. COMPARISON: 03/28/2022 Findings: Images through the lung bases reveal no abnormalities. 5 mm nonobstructing left renal stone present. No right renal stone. The liver, spleen, and pancreas appear normal. There is stable bilateral low-density adrenal nodules, right larger than left, compatible with bilateral adenomas. Cholecystectomy clips are present. There are atherosclerotic calcifications of the aorta. Visualized bowel loops are unremarkable. No ascites. Impression: Bilateral adrenal adenomas, unchanged from prior CT scan. 5 mm nonobstructing left renal stone. Reviewed, dictated and finalized at [facility]. ITION FACULTY MEMBER Impression: Bilateral adrenal adenomas, unchanged from prior CT scan. 5 mm nonobstructing left renal stone.
== END 2023-11-12 10:21 ==
PROVIDERS: PCP Family Medicine Adolescent Medicine; Visit Provider Family Medicine Adolescent Medicine
DX: N20.0 Calculus of kidney (principal); E27.8 Other specified disorders of adrenal gland
CPT/HCPCS: 74150

== ENCOUNTER 2024-05-11 11:03 | Outpatient (CLI) | payer MEDICARE, SELFPAY ==
--- NOTE | ~2024-05-11 | XR_ITS ---
XR abdomen/kub 1V Ordering provider: Radames Salcido MD History: . CALCIUM KIDNEY STONE . Comparison: October 31, 2012 FINDINGS: BOWEL: Nonobstructive bowel gas pattern. ORGANOMEGALY: None. SIGNIFICANT PATHOLOGIC CALCIFICATIONS: None. OTHER: Degenerative spine. No free air is seen under the diaphragm. IMPRESSION: NO ACUTE ABDOMINAL FINDINGS. Reviewed, dictated and finalized at location A.
== END 2024-05-11 11:04 ==
PROVIDERS: PCP Family Medicine Adolescent Medicine; Referring Provider Nurse Practitioner Obstetrics & Gynecology; Visit Provider Urology
DX: N20.0 Calculus of kidney (principal)
CPT/HCPCS: 74018

== ENCOUNTER 2024-06-22 12:33 | Outpatient (CLI) | payer MEDICARE, SELFPAY ==
[2024-06-22 14:08] LABS: Add Urine Microscopic? YES; Appearance Urine Clear (Clear); Bacteria Urine None Seen /hpf; Bilirubin Urine Negative (Negative); Blood Urine 3+ (Negative); Color Urine Yellow (Yellow); Glucose Urine UA Negative (Negative); Ketones Urine Negative (Negative); Leukocyte Esterase Ur Negative LEU/UL (Negative); Nitrate Urine Negative (Negative); Non Pathogenic Casts 0-2; Protein Urine Negative (Negative); RBC Urine >100 /hpf (0-2); Specific Grav Ur 1.009 (1.001-1.035); Squamous Epithelial Cell Urine None Seen /hpf (Few); Urobilinogen Urine 0.2 mg/dL (<2.0); WBC Urine 0-5 /hpf (0-3); pH Urine 6.5 (5.0-9.0)
== END 2024-06-22 12:34 | disposition home or self-care (01) ==
LOC: ANHSURGERY 12:38
PROVIDERS: PCP Family Medicine Adolescent Medicine; Visit Provider Urology
DX: N20.1 Calculus of ureter (principal); Z01.812 Encounter for preprocedural laboratory examination
CPT/HCPCS: 81001

== ENCOUNTER 2024-06-23 00:53 | Day surgery (SDC) | payer MEDICARE, SELFPAY ==
--- NOTE | 2024-06-22 11:37 | PC.NURSE ---
Report to the Outpatient Waiting Room, entrance under the green pavilion located off [facility], at time __8:45 AM on date 06/23/24 . Planned Procedure Time: __1045 .? Time changes happen often and if your time is changed the preop area will call you the afternoon before. - You and your visitor will be asked to self-screen and do not enter if you have any COVID symptoms. Please call surgeon if you need to reschedule. - A mask is optional within the hospital at this time. Patients may have clear liquids (water, carbonated beverages, clear teas, apple juice) until 3 hours prior to surgery(7:45 AM) with a maximum of 20 ounces. - No food from midnight until time of surgery and no smoking - Infants may have breast milk until 4 hours before surgery, formula 6 hours prior to surgery. - Children will be allowed to drink immediately following surgery.? If applicable, please bring a bottle or sippy cup to assist with drinking. Juice, water, soda, and popsicles are readily available.? For infants on formula, please bring formula the day of surgery.? Pacifiers are allowed. Take only the following medications with a SIP of water on the morning of surgery: __AMLODIPINE,BUPROPION DO NOT STOP ANY OF YOUR OTHER PRESCRIPTION MEDICATIONS PRIOR TO SURGERY EXCEPT THE FOLLOWING Medications to discontinue per physician _PT STATES LAST DOSE ALL VITAMINS AND SUPPLEMENTS 06/21/24 Date to take last dose Please no make-up, nail romanian, hairspray, perfume, deodorant, or body powder the day of surgery.? No jewelry (including any body piercings) or valuables the day of surgery, leave them at home.? Please take a shower or bath the night before, or the morning of, surgery with an antibacterial soap.? Wear comfortable, loose fitting clothing.? Children are encouraged to wear pajamas. - Jewelry must be removed prior to entering the operating room.? Rings and piercings that are not removed may be cut off. - The hospital will not accept responsibility for valuables.? - Please leave all valuables, including medications, at home the day of surgery. If you are going home after surgery, a licensed regional dedicated truck driver must drive you home.? - NO public transportation without another adult if you receive anesthesia. - We recommend that an adult stay with you for 24 hours following discharge. - We also recommend that you do not drive, make important decision, drink alcoholic beverages, or take any drugs that were not prescribed by your health care provider for at least 24 hours after your discharge time. For Pediatric surgeries, we recommend two adults accompany the child home. Follow any additional instructions given to you from your surgeon. Telephone instructions given to _PT and asked if any additional questions and then verbalized understanding. Patient advised to call surgeon office or pre surgery nurse liaison [phone] if any additional questions.
[2024-06-22 11:44] VITALS: BMI 38.8
[2024-06-23] VITALS (8 sets, daily range): BP systolic 107–169; BP diastolic 70–85; PULSE 57–66; RESP 12–15; TEMP 35.7–37.1; O2SAT 94–99
--- NOTE | ~2024-06-23 | XR_ITS ---
EXAMINATION: XR retrograde pyelo w/stent LT DATE: 06/23/2024 09:41 INDICATION: Left ureteral stone. TECHNIQUE: 4 intraoperative fluoroscopic views of the abdomen and pelvis were obtained. I was not pre sent. Fluoroscopy exposure time was 13 seconds. COMPARISON: CT abdomen 11/12/2023 FINDINGS: The left-sided retrograde pyelogram is unremarkable. The final images demonstrate a left in ternal ureteral stent in expected position. Surgical clips in the right upper quadrant are likely fro m cholecystectomy. IMPRESSION: 1. Left internal ureteral stent in expected position. Reviewed, dictated and finalized at location A.
--- NOTE | 2024-06-23 07:18 | WPDHPUPDATE1 ---
History and Physical Update Update Date/Time: 06/23/24 07:18 History and Physical has been reviewed, including an updated exam of the patient. There are NO changes in the patient's condition. Risks, benefits, and alternatives have been discussed and questions answered. Patient agrees to proceed with procedure.
[2024-06-23] MEDS: LACTATED RINGERS 1,000 ML 30 ML IV CONT (08:00)
--- NOTE | 2024-06-23 09:00 | WPDANESEPPF ---
Anes - Initial Pre Proc Eval Procedure: Operation Date: 06/23/24 09:30 Proposed Procedures p Cystoscopy, Left Ureteroscopy, Possible Left Retrograde Pyelogram, Possible Left Stone Extraction, Possible Left Stent Placement, Possible Holmium Laser Procedure - Radames Salcido MD Date/Time: 06/23/24 09:00 Surgeon: Radames Salcido MD Pre Op Diagnosis: left ureteral calculus Patient Data Age: 69 Gender: F Height: 1.52 m Weight: 90.3 kg Last Vital Signs Temp 96.2 F L 06/23/24 08:00 Pulse 66 06/23/24 08:00 Resp 14 06/23/24 08:00 BP 144/85 H 06/23/24 08:00 Pulse Ox 96 06/23/24 08:00 O2 Del Method Room Air 06/23/24 08:00 Allergies Allergy/AdvReac Type Severity Reaction Status Date / Time adhesive tape Allergy Intermediate Rash Verified 06/23/24 08:10 amoxicillin Allergy Intermediate Rash Verified 06/23/24 08:10 isoniazid Allergy Intermediate Other Verified 06/23/24 08:10 Sulfa (Sulfonamide Allergy Intermediate Rash Verified 06/23/24 08:10 Antibiotics) sulfanilamide Allergy Intermediate Rash Verified 06/23/24 08:10 trimethoprim Allergy Intermediate Rash Verified 06/23/24 08:10 varenicline Allergy Intermediate Other Verified 06/23/24 08:10 Home Medications Medication Instructions Recorded Confirmed Type cholecalciferol (vitamin D3) 25 1,000 unit PO DAILY 09/01/19 06/23/24 History mcg (1,000 unit) capsule omega-3 fatty acids 1,000 mg 1,000 mg PO DAILY 09/01/19 06/23/24 History capsule (Fish Oil Concentrate) calcium carbonate (Calcium 600) 600 mg PO BID 09/25/19 06/23/24 History psyllium husk 0.52 gram capsule 6 g PO DAILY 04/18/23 06/23/24 History (Fiber (psyllium husk)) rosuvastatin 40 mg tablet 20 mg PO DAILY 04/18/23 06/22/24 History amlodipine 2.5 mg tablet 2.5 mg PO DAILY 10/29/23 06/23/24 History bupropion HCl 150 mg tablet,12 hr 150 mg PO BID #180 tabs 12/10/23 06/23/24 Rx sustained-release pantoprazole 40 mg tablet,delayed 40 mg PO QAM #90 tabs 12/10/23 06/22/24 Rx release baclofen 10 mg tablet 10 mg PO TID PRN muscle spasm #15 05/04/24 06/22/24 Rx tabs venlafaxine 37.5 mg 37.5 mg PO HS NIGHT SWEATS 06/22/24 06/22/24 History capsule,extended release 24 hr Patient hx anesthesia problems: none Family hx anesthesia problems: none Results Review: All pre-operative results and documents have been reviewed as part of the pre-operative evaluation. [facility] Past Medical History Medical History Aortic atherosclerosis Basal cell carcinoma Bladder cancer Breast cancer History of breast cancer History of tuberculosis Lipoma Malignant melanoma Pacemaker Pacemaker Pure hypercholesterolemia, unspecified Sick sinus syndrome Surgical History Surgical History H/O dilation and curettage H/O hernia repair H/O total hysterectomy with removal of both tubes and ovaries History of bilateral cataract extraction History of colonoscopy with polypectomy History of mastectomy History of tonsillectomy History of tubal ligation Hx of cholecystectomy Family History Family History Mother Hypertension Family history of elevated blood lipids, Onset Age: 82 Family history of lung cancer Grandparent Cerebrovascular accident, Onset Age: 89 Family history of malignant neoplasm of breast in first degree relative, Onset Age: 89 Father Family history of lung cancer Other Family history of allergic disorder Family history of tuberculosis Social History Social History Smoking packs per day: 1 Smoking cigarettes per day: 20.0 Years smoked: 53 Smoking pack-years: 53.00 Smoking status: Current every day smoker Tobacco type: cigarettes Second hand tobacco smoke exposure: No Alcohol intake: current Alcohol use detail
[2024-06-23] MEDS: ceFAZolin 2 GM/D5W 50 ML 2 GM/50 ML BAG IVPB (09:10)
--- NOTE | 2024-06-23 09:35 | W.PM.PROC2 ---
Procedure Note - Detailed Date of Procedure 06/23/24 Pre-op Diagnosis left ureteral calculus Post-op Diagnosis Same Procedure Performed Cystoscopy, left retrograde pyelogram, left ureteroscopy with stone extraction, left ureteral stent placement 4.8 Bangladeshi contour Surgeon Radames Salcido MD Anesthesia General Description of Procedure Patient was taken the operative suite correctly identified. Once anesthesia was obtained she was placed in dorsal lithotomy position and prepped and draped usual sterile fashion. Twenty-two Bangladeshi scope was inserted the bladder. There were no tumors noted. Left ureteral orifice was cannulated with a guidewire. Dilated the orifice with an 8/10 dilator. Rigid ureteral scope was then inserted. The stone was visualized. Although was 6 mm in length it was narrow at 3-1/2 mm. I was able to manipulated escape basket around it and retrieve it gently without any evidence of trauma. Reinspection revealed no residual stone. Pyelogram was then performed to confirm placement of the stent. 4.8 Bangladeshi contour stent was placed with the proximal end coiled in the renal pelvis and the distal in the bladder. Bladder was drained. 2% viscous lidocaine was inserted into the urethra patient is taken recovery stable condition. She will follow-up in a week's time for stent removal. This completes dictation. Please send a copy of op note to my office. Estimated Blood Loss 0 Drains Yes Packing No Pathology Yes Complications No immediate complications Condition Stable
[2024-06-23] MEDS: LIDOCAINE HCL 2% GEL UROJET 10 ML PKG MUCOUS MEM (09:42)
--- NOTE | 2024-06-23 11:09 | SUR.PHASEII ---
Dr. Ramirez aware of elevated BP. No treatment at this time.
[2024-06-23] MEDS: oxyCODONE HCL (*CRX) 5 MG TAB IR PO (11:14)
== END 2024-06-23 11:42 | disposition home or self-care (01) ==
PROVIDERS: PCP Family Medicine Adolescent Medicine; Visit Provider Urology
PROC: (CPT 52352; principal; 2024-06-23 09:30)
DX: N20.1 Calculus of ureter (principal); E78.00 Pure hypercholesterolemia, unspecified; Z95.0 Presence of cardiac pacemaker; Z85.3 Personal history of malignant neoplasm of breast; I70.0 Atherosclerosis of aorta; F17.210 Nicotine dependence, cigarettes, uncomplicated; E66.9 Obesity, unspecified; Z68.38 Body mass index [BMI] 38.0-38.9, adult
CPT/HCPCS: 52332; 52352; 74420; 82365; 88300; A9270; C1769; C2617; J0690; J1100; J2250; J2405; J2704; J3010; J7120; Q9966